=== PATIENT | male | born 1960 | race Caucasian/White ===

== ENCOUNTER 2016-12-22 15:38 | Emergency (ER) | payer MEDICAID ==
[~2016-12-22] VITALS: Ht 162.6 cm; Wt 90.9 kg
[~2016-12-22 15:38] MED LIST: no meds
[2016-12-22 17:25] VITALS: BP 170/90
[2016-12-22] MEDS ORDERED: TOBRAMYCIN/DEXAMETHASONE 5 ML OPHTHALMIC SUSPENSION OU ONE (17:45)
== END 2016-12-22 18:00 | disposition home or self-care (01) ==
LOC: EMS 15:40
DX: H10.219 Acute toxic conjunctivitis, unspecified eye (principal)
CPT/HCPCS: 99283